=== PATIENT | female | born 1985 | race Caucasian/White ===

== ENCOUNTER 2016-11-20 16:59 | Emergency (ER) | payer MEDICAID ==
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
[2016-11-20 17:12] VITALS: BP 129/98; PULSE 85; RESP 16; TEMP 98.4; O2SAT 92
== END 2016-11-20 17:35 | disposition home or self-care (01) ==
LOC: CED 16:59
DX: S00.31XA Abrasion of nose, initial encounter (principal); E11.9 Type 2 diabetes mellitus without complications; J45.909 Unspecified asthma, uncomplicated; F17.200 Nicotine dependence, unspecified, uncomplicated; Z79.84 Long term (current) use of oral hypoglycemic drugs; V00.811A Fall from moving wheelchair (powered), initial encounter

== ENCOUNTER → 2018-04-17 | Outpatient (CLI) | payer MEDICAID | LOC: CIMAGING 14:28 | PROVIDERS: ATTEND Family Medicine | DX: S99.912A Unspecified injury of left ankle, initial encounter (principal) | CPT/HCPCS: 73610-PO ==